=== PATIENT | male | born 1995 | race Native Hawaiian/Other Pacific Islander ===

== ENCOUNTER 2018-06-11 21:31 | Emergency (ER) | payer OTHER ==
[~2018-06-11] VITALS: Ht 177.8 cm; Wt 65.8 kg
[2018-06-11 21:40] VITALS: BP 138/85; TEMP 97.3
== END 2018-06-11 23:58 | disposition home or self-care (01) ==
LOC: ED 21:31
PROC: 2W3QX1Z Immobilization of Right Lower Leg using Splint (ICD-10-PCS; principal; 2018-06-11)
DX: S93.401A Sprain of unspecified ligament of right ankle, initial encounter (principal); S90.02XA Contusion of left ankle, initial encounter; V86.59XA Driver of other special all-terrain or other off-road motor vehicle injured in nontraffic accident, initial encounter
CPT/HCPCS: 96372; 99283; J2175; J2550; L4350

== ENCOUNTER 2021-02-14 17:12 | Emergency (ER) | payer OTHER ==
[~2021-02-14] VITALS: Ht 177.8 cm; Wt 65.8 kg
[2021-02-14 17:22] VITALS: BP 127/69; TEMP 97.9
== END 2021-02-14 18:05 | disposition home or self-care (01) ==
LOC: ED 17:12
PROC: 0HQGXZZ Repair Left Hand Skin, External Approach (ICD-10-PCS; principal; 2021-02-14)
DX: S61.412A Laceration without foreign body of left hand, initial encounter (principal); W26.0XXA Contact with knife, initial encounter; Y92.89 Other specified places as the place of occurrence of the external cause
CPT/HCPCS: 99283